=== PATIENT | male | born 2000 ===

== ENCOUNTER 2021-07-02 16:02 | Emergency (ER) | payer OTHER ==
--- NOTE | 2021-07-02 16:30 | Emergency Department Report ---
ED Head Trauma HPI - General Chief complaint: Head Injury Stated complaint: HEAD INJURY Time Seen by Provider: 07/02/21 16:26 Source: police Mode of arrival: Ambulatory Limitations: Language Barrier - History of Present Illness Initial comments: science interpreter used. 21-year-old male who is currently incarcerated was brought to the ER today by the police for evaluation of a head injury. Patient states that the injury occurred just prior to arrival. He states that he was playing soccer when he asked that he stepped on the ball, slipped and fell and struck his head once on the wall and then on the ground. He denies any LOC. He complains of mild headache and he does have a laceration but otherwise he denies any symptoms. He is not up-to-date on his tetanus. He denies any significant past medical history. MD Complaint: head injury ED Review of Systems ROS: Stated complaint: HEAD INJURY Other details as noted in HPI Comment: All other systems reviewed and negative Respiratory: denies: cough, shortness of breath, wheezing Cardiovascular: denies: chest pain, palpitations Musculoskeletal: denies: back pain, joint swelling, arthralgia Skin: other (Laceration to scalp). denies: rash, lesions, change in color, change in hair/nails, pruritus Neurological: headache. denies: numbness, paresthesias, confusion, abnormal gai t, vertigo Psychiatric: denies: anxiety, depression, auditory hallucinations, visual hallucinations, homicidal thoughts, suicidal thoughts Hematological/Lymphatic: denies: easy bleeding, easy bruising, swollen glands ED Past Medical Hx - Social History Smoking Status: Unknown if ever smoked ED Physical Exam - General Limitations: Language Barrier General appearance: alert, in no apparent distress - Head Head exam: Present: other (Approximately 2-1/2 cm superficial laceration noted to left parietal aspect of scalp. Bleeding controlled with pressure. No crepitus or deformity noted. No apparent foreign body.) - Eye Eye exam: Present: normal appearance, PERRL, EOMI Pupils: Present: normal accommodation - Neck Neck exam: Present: normal inspection, full ROM. Absent: meningismus - Respiratory Respiratory exam: Present: normal lung sounds bilaterally. Absent: respiratory distress, wheezes, rales, rhonchi, stridor - Cardiovascular Cardiovascular Exam: Present: regular rate, normal rhythm, normal heart sounds - Neurological Exam Neurological exam: Present: alert, oriented X3, CN II-XII intact, normal gait - Psychiatric Psychiatric exam: Present: normal affect, normal mood - Skin Skin exam: Present: intact ED Course Vital Signs 07/02/21 16:13 Temperature 98.6 F Pulse Rate 90 Respiratory 20 Rate Blood Pressure 114/73 O2 Sat by Pulse 99 Oximetry - Laceration /Wound Repair Left Head Wound Location: head (Left parietal scalp) Wound Length (cm): 3 (3.5cm ) Wound's Depth, Shape: superficial Wound Explored: clean Betadine Prep?: Yes Anesthesia: 1% Lidocaine Volume Anesthetic (ccs): 4 Number of Sutures: 5 (Cody) Sterile Dressing Applied?: Yes Progress: Patient tolerated procedure without any complications. - Medical Decision Making Patient currently is awake alert oriented x3. He has a GCS of 15. He is neurologically intact. His gait is normal. He is not toxic or ill-appearing. He is not any significant distress. Laceration to his scalp repaired by me, see procedure note for detail. At this time there is no indication for CT head or any other emergent testing. Discussed wound care with patient. Also gave patient head injury precautions and what to return to the ER for if they develop. Patient and officers expressed understanding and agree with plan. Patient was stable at time of discharge. Critical care attestation.: If time is entered above; I have spent that time in minutes in the direct care of this critically ill patient, excluding procedure time. ED Disposition Clinical Impression: Head injury, closed, without LOC, Scalp laceration Disposition: 01 HOME / SELF CARE / HOMELESS Is pt being admited?: No Does the pt Need Aspirin: No Condition: Stable Instructions: Head Injury, Adult, Sutures, [place], or Adhesive Wound Closure Additional Instructions: Keep the wound clean daily with soap and water. Do not use peroxide or alcohol. Dry well after each cleaning and apply thin layer of Neosporin. Do this daily until its time to have the cody removed which will be in the next 7 to 10 days. Return sooner if there is any signs and symptoms of infection such as pus drainage, increasing redness or pain. You can give Tylenol for pain. At this time there is no indication for head CT but if patient develops altered mental status, uncontrollable nausea vomiting, neurological symptoms return to the ER immediately. Otherwise follow-up with primary care doctor. Referrals: PRIMARY CARE, [Primary Care Provider] - 3-5 Days Time of Disposition: 17:09
[2021-07-02] MEDS ORDERED: TETANUS,DIPH,PERTUSS(ACELL) VACCINE 0.5 ML SYRINGE IM ONE (16:43)
[2021-07-02] MEDS ORDERED: NEOMY 3.5 MG/BACIT 400 UNITS/POLY B 5000 UNITS/GM OINT PACKET TP ONE (17:06)
[2021-07-02 18:09] VITALS: BP 126/78
== END 2021-07-02 18:10 | disposition home or self-care (01) ==
LOC: ED 16:02
DX: S01.01XA Laceration without foreign body of scalp, initial encounter (principal); S09.90XA Unspecified injury of head, initial encounter; X58.XXXA Exposure to other specified factors, initial encounter; Y93.89 Activity, other specified; Y92.89 Other specified places as the place of occurrence of the external cause; Y99.8 Other external cause status
CPT/HCPCS: 90471; 90715; 99282